=== PATIENT | male | born 1990 | race African-American/Black ===

== ENCOUNTER 2017-01-25 20:45 | Emergency (ER) | payer MEDICAID ==
[~2017-01-25] VITALS: Ht 190.5 cm; Wt 83.9 kg
[2017-01-25 21:48] VITALS: BP 129/96
== END 2017-01-25 23:40 | disposition left against medical advice (07) ==
LOC: ER 20:45
DX: M54.9 Dorsalgia, unspecified (principal); Z53.21 Procedure and treatment not carried out due to patient leaving prior to being seen by health care provider